=== PATIENT | female | born 1990 | race Caucasian/White ===

== ENCOUNTER 2018-01-30 17:58 | Emergency (ER) | payer MEDICAID ==
[2018-01-30] MEDS ORDERED: Lidocaine 1% 20 ML MDV INJECT ONE (19:10)
--- NOTE | 2018-01-30 19:48 | EDM.PDOC ---
ED HPI GENERAL MEDICAL PROBLEM - General Chief Complaint: Upper Extremity Injury/Pain Stated Complaint: BITE ON FINGER/LEFT HAND Time Seen by Provider: 01/30/18 19:10 Source of Information: Reports: Patient History Limitations: Reports: No Limitations - History of Present Illness INITIAL COMMENTS - FREE TEXT/NARRATIVE: Swelling to end of left 5ht finger, for several days, Getting worse. Possible insect bite. No history of foreign bodyl. left pinky Pain Score (Numeric/FACES): 6 - Related Data Allergies Allergy/AdvReac Type Severity Reaction Status Date / Time No Known Allergies Allergy Verified 01/30/18 18:15 Home Meds: Home Meds Levothyroxine Sodium [Unithroid] 320 mcg PO DAILY 01/30/18 [History] Past Medical History [employer] History: Reports: Psychiatric History: Reports: Anxiety, PTSD Endocrine/Metabolic History: Reports: Other (See Below) Other Endocrine/Metabolic History: Grave's disease Immunologic History: Reports: Other (See Below) Other Immunologic History: fibromyalgia - Past Surgical History Female Surgical History: Reports: Section, Endometrial Ablation, Tubal Ligation, Other (See Below) Other Female Surgeries/Procedures: bladder surgery Social & Family History - Tobacco Use Smoking Status *Q: Current Every Day Smoker Years of Tobacco use: 1 Packs/Tins Daily: 0.5 - Recreational Drug Use Recreational Drug Type: Reports: Marijuana/Hashish Recreational Drug Use Frequency: Daily Review of Systems - Review of Systems Review Of Systems: ROS reveals no pertinent complaints other than HPI. ED EXAM, GENERAL - Physical Exam Exam: See Below Exam Limited By: No Limitations General Appearance: Alert, WD/WN Extremities: Other (typical felon to left 5th finger. no proximal infection.) Course - Vital Signs Last Recorded V/S: Last Vital Signs Temp 35.6 C 01/30/18 18:12 Pulse 96 01/30/18 18:12 Resp 16 01/30/18 18:12 BP 125/69 01/30/18 18:12 Pulse Ox 99 01/30/18 18:12 - Orders/Labs/Meds Meds: Medications Discontinued Medications Generic Name Dose Route Start Last Admin Trade Name Freq PRN Reason Stop Dose Admin Lidocaine HCl 20 ml 01/30/18 19:10 Xylocaine 1% INJECT 01/30/18 19:11 ONETIME ONE - Re-Assessments/Exams Free Text/Narrative Re-Assessment/Exam: 01/30/18 19:44 Procedure: Incision and drainage of felon of left 5th finger. Informed consent obtained. finger prepped with alcohol. digital block with 1% plain lidocaine. About 4 ml total. Good anesthesia. Approximately 5 mm incision made to lateral margin and carried through to medial side. Moderate amount of pus. Culture done. Probed with mosquito to break loculations. Pus expressed. Iodoform gauze inserted followed by fluffy dressing. Departure - Departure Time of Disposition: 19:48 Disposition: Home, Self-Care 01 Condition: Fair Clinical Impression: Felon of finger of left hand, Encounter for incision and drainage procedure - Discharge Information Referrals: PCP,None [Primary Care Provider] - Additional Instructions: Remove the dressing tomorrow. Pull out the gauze strip. Wash with warm soapy water daily. Apply antibiotic ointment and keep covered with drainage. It should heal quickly. If it seem worse then see doctor. take the antibiotic Cephalexin 500 mg 4 times daily for 1 week. Use the Diflucan if needed. For pain use [place] 5/325 1 or 2 every 4 hours. May cause sedation and impair driving. Can be addicting.
== END 2018-01-30 20:34 | disposition home or self-care (01) ==
LOC: JP.ED 17:58
DX: L03.012 Cellulitis of left finger (principal); F17.210 Nicotine dependence, cigarettes, uncomplicated
CPT/HCPCS: 26010; 87070; 87077; 87186; 87205; 99284-25